=== PATIENT | female | born 1990 | race Caucasian/White ===

== ENCOUNTER 2017-12-13 17:28 | Inpatient (IN) | payer BC ==
--- NOTE | 2017-12-13 17:45 | PDOC ---
Rapid Medical Evaluation Time Seen by Provider: 12/13/17 17:34 Medical Evaluation: Allergies Allergy/AdvReac Type Severity Reaction Status Date / Time cefaclor [From [facility]] Allergy Mild Rash Verified 06/02/13 17:03 12/13/17 17:36 The patient presents with a chief complaint of: " Feels like I cant take a deep breathe" Feels like she has a fever. Plane to [place] 11/29. Currently 29 weeks , Anemic, on iron supplements. I have performed a brief in-person evaluation of this patient. Pertinent physical exam findings: vss, [Tachy. Lungs clear] I have ordered the following: [EKG, cbc , CMP, Iron,, d-dimer, Tyoe and screen ] The patient will proceed to the ED for further evaluation. Discharge Disposition - Diagnosis SOB (shortness of breath) - Referrals - Patient Instructions - Post Discharge Activity
[2017-12-13 18:08] LABS: BASO % 0.2 % (0-2.0); EOS % 1.1 % (0-4.5); HEMATOCRIT 30.3 % (32.4-45.2); HEMOGLOBIN 10.8 GM/dL (10.7-15.3); LYMPH % 20.1 % (8-40); MCH 33.9 pg (25.7-33.7); MCHC 35.7 g/dl (32.0-36.0); MEAN CELL VOLUME 94.9 fl (80-96); MONO % 7.6 % (3.8-10.2); PLATELET COUNT 168 K/MM3 (134-434); RBC 3.19 M/mm3 (3.60-5.2); RDW 13.4 % (11.6-15.6); WHITE BLOOD COUNT 6.3 K/mm3 (4.0-10.0)
[2017-12-13 18:40] LABS: ALBUMIN 2.9 g/dl (3.4-5.0); ALK PHOS 96 U/L (45-117); ANION GAP 10 (8-16); BILIRUBIN,TOTAL 0.7 mg/dL (0.2-1.0); BLOOD UREA NITROGEN 8 mg/dL (7-18); CALCIUM 8.2 mg/dL (8.5-10.1); CHLORIDE 105 mmol/L (98-107); CO2 25 mmol/L (21-32); CREATININE 0.5 mg/dL (0.55-1.02); GLUCOSE,RANDOM 107 mg/dL (74-106); SGOT/AST 14 U/L (15-37); SGPT/ALT 20 U/L (12-78); SODIUM 140 mmol/L (136-145); TOT PROT 6.6 g/dl (6.4-8.2)
--- NOTE | 2017-12-13 19:54 | PDOC ---
History of Present Illness - General Stated Complaint: S.O.B Time Seen by Provider: 12/13/17 17:34 History Source: Patient Exam Limitations: No Limitations - History of Present Illness Initial Comments: CHIEF COMPLAINT: 27 y/o afebrile female, approximately 29 weeks with due date of 02/27/18 c/o difficulty catching her breath today. HISTORY OF PRESENT ILLNESS: The patient admits this has happened multiple times throughout her 2nd trimester but normally goes away on its own pretty quickly. She states today she began having the symptoms of difficulty breathing and it has not gone away. She called Dr. Aragon's office who informed him that she was hardly able to talk because she was so out of breath and admitted she felt like something was sitting on her chest. She does admit to flying back from [place] on 11/29/17. She denies f/c, n/v/d, abd pain, cough , hemoptysis, calf pain. She admits the chest pain has resolved. Vital signs on arrival are notable for pulse of 116. REVIEW OF SYSTEMS: GENERAL/CONSTITUTIONAL: No fever/chills. No weakness. No weight change. HEAD, EYES, EARS, NOSE AND THROAT: No change in vision. No ear pain or discharge. No sore throat. CARDIOVASCULAR: +chest pain and SOB. RESPIRATORY: No cough, wheezing, or hemoptysis. GASTROINTESTINAL: No abd pain, nausea, vomiting, diarrhea. GENITOURINARY: No dysuria, frequency, or change in urination. MUSCULOSKELETAL: No joint or muscle swelling or pain. No neck or back pain. SKIN: No rash or easy bruising. NEUROLOGIC: No headache, vertigo, loss of consciousness, or loss of sensation. PHYSICAL EXAM: GENERAL: The patient is awake, alert, and fully oriented, in no acute distress. The patient is in NAD or obvious discomfort. She can speak in full sentences without difficulty. HEAD: Normal with no signs of trauma. ENT: Pupils equal, round and reactive to light, extraocular movements intact, sclera anicteric, conjunctiva clear. Neck supple. LUNGS: Clear to auscultation bilaterally. Normal excursion. No respiratory distress or use of accessory muscles. CV: Tachycardic with regular rhythm, S1/S2, no MRG. Cap refill < 2 sec. ABDOMEN: Soft, non-distended, non-tender even to deep palpation, no hepatomegaly or splenomegaly, no masses. EXTREMITIES: Normal range of motion, no edema. Negative Master's sign b/l. NEUROLOGICAL: Normal speech, normal gait. CN II-XII grossly intact. PSYCH: Normal mood, normal affect. SKIN: Warm, dry, normal turgor, no rashes or lesions noted. Past History - Past Medical History Allergies/Adverse Reactions: Allergies Allergy/AdvReac Type Severity Reaction Status Date / Time cefaclor [From Ce[facility]] Allergy Mild Rash Verified 06/02/13 17:03 Home Medications: Ambulatory Orders Pnv No.25/Iron Fumarate/FA/Dha [-1 Capsule] 1 each PO DAILY 06/04/13 Ferrous Sulfate 325 mg PO DAILY 12/13/17 Asthma: No Cancer: No Cardiac Disorders: No COPD: No DVT: No Diabetes: No HTN: No Seizures: No Thyroid Disease: No - Reproductive History Is Patient Now?: Yes (#): 3 Para: 2 - Immunization History Immunization Up to Date: Yes - Suicide/Smoking/Psychosocial Hx Smoking History: Never smoked Have you smoked in the past 12 months: No Information on smoking cessation initiated: No Hx Alcohol Use: No Drug/Substance Use Hx: No Substance Use Type: None Hx Substance Use Treatment: No *Physical Exam - Vital Signs Last Vital Signs Temp Pulse Resp BP Pulse Ox 97.8 F 116 H 20 128/78 100 12/13/17 17:35 12/13/17 17:35 12/13/17 17:35 12/13/17 17:35 12/13/17 17:35 Heart Score/ECG Review - ECG Intrepretation Comment:: Twelve-lead EKG was performed and reviewed by Dr. Bridges. There is sinus tachycardia. The axis is normal. The intervals are normal. There are no ST or T wave abnormalities. Impression: Otherwise normal twelve-lead EKG ED Treatment Course - LABORATORY CBC & Chemistry Diagram: 12/13/17 18:00 12/13/17 18:00 - ADDITIONAL ORDERS Additional order review: Laboratory Results 12/13/17 12/13/17 12/13/17 18:00 18:00 18:00 D-Dimer 2287 H Sodium 140 Potassium 4.0 Chloride 105 Carbon Dioxide 25 Anion Gap 10 BUN 8 Creatinine 0.5 L Creat Clearance w eGFR > 60 Random Glucose 107 H Calcium 8.2 L Ferritin 6.319 L Total Bilirubin 0.7 AST 14 L ALT 20 Alkaline Phosphatase 96 Total Protein 6.6 Albumin 2.9 L Blood Type AB POSITIVE Antibody Screen Negative 12/13/17 18:00 RBC 3.19 L MCV 94.9 MCHC 35.7 RDW 13.4 MPV 8.0 Neutrophils % 71.0 Lymphocytes % 20.1 Monocytes % 7.6 Eosinophils % 1.1 Basophils % 0.2 Medical Decision Making - Medical Decision Making A/P: 27 y/o female, 29 week female with SOB and chest pain today with recent airplane travel. Plan is as follows: 1. EKG 2. Labs 3. Doppler LEs. D-Dimer [address] Aragon, her PATENT [place]. He states it is safe to have the patient have a chest CTA to r/o PE. he would like her admitted to him and medically managed by the hospitalist. [phone] Dr. Mahesh Aragon and myself spoke with the patient, explaining all risks and benefits of CTA. the patient agrees to CTA to r/o PE. She will be admitted for observation to Dr. Aragon. Dr. Funk aware and will consult medically. CTA IMPRESSION: No evidence of pulmonary embolism. Patient given results and will be admitted for observation. *DC/Admit/Observation/Transfer Diagnosis at time of Disposition: SOB (shortness of breath), Tachycardia - Discharge Dispostion Condition at time of disposition: Stable Admit: Yes - Referrals - Patient Instructions - Post Discharge Activity
--- NOTE | 2017-12-13 21:04 | PDOC ---
*Physical Exam - Vital Signs Last Vital Signs Temp Pulse Resp BP Pulse Ox 97.8 F 116 H 20 128/78 100 12/13/17 17:35 12/13/17 17:35 12/13/17 17:35 12/13/17 17:35 12/13/17 17:35 ED Treatment Course - LABORATORY CBC & Chemistry Diagram: 12/13/17 18:00 12/13/17 18:00 - ADDITIONAL ORDERS Additional order review: Laboratory Results 12/13/17 12/13/17 12/13/17 18:00 18:00 18:00 D-Dimer 2287 H Sodium 140 Potassium 4.0 Chloride 105 Carbon Dioxide 25 Anion Gap 10 BUN 8 Creatinine 0.5 L Creat Clearance w eGFR > 60 Random Glucose 107 H Calcium 8.2 L Ferritin 6.319 L Total Bilirubin 0.7 AST 14 L ALT 20 Alkaline Phosphatase 96 Total Protein 6.6 Albumin 2.9 L Blood Type AB POSITIVE Antibody Screen Negative 12/13/17 18:00 RBC 3.19 L MCV 94.9 MCHC 35.7 RDW 13.4 MPV 8.0 Neutrophils % 71.0 Lymphocytes % 20.1 Monocytes % 7.6 Eosinophils % 1.1 Basophils % 0.2 Medical Decision Making - Medical Decision Making 12/13/17 21:04 agree with care from KERRI Mallory *DC/Admit/Observation/Transfer Diagnosis at time of Disposition: SOB (shortness of breath), Tachycardia, Suspected pulmonary embolism - Discharge Dispostion Condition at time of disposition: Stable - Referrals Referrals: Kana Aragon MD [Primary Care Provider] - - Patient Instructions - Post Discharge Activity
--- NOTE | 2017-12-13 21:48 | HP ---
Past Medical History - Primary Care Physician PCP:: Kana Aragon - Admission Chief Complaint: 27yo P2 with c/o SOB and prior chest pain that resolved referred to ER for evaluation. History of Present Illness: Pt reports SOB since 12pm that has gotten better. She had some chest pain earlier but that has resolved. She denies cough or hemoptysis, no fever or chills. She still has mild-moderate SOB. The pt took air flight from [place] . History Source: Patient, Medical Record Limitations to Obtaining History: No Limitations - Past Medical History [employer]: No: Alzheimer's, CVA, Dementia, Migraine, Multiple Sclerosis, Peripheral Neuropathy, Parkinson's, Seizure, Syncope, TIA, Vertigo, Other Cardiovascular: No: AFIB, Aneurysm, Aortic Insufficiency, Aortic Stenosis, CAD, CHF, Deep Vein Thrombosis, HTN, Hyperlipdemia, [place], Mitral Insufficiency, Mitral Stenosis, Murmur, Pulmonary Hypertension, Other Pulmonary: No: Asthma, Bronchitis, Cancer, COPD, O2 Dependent, Pneumonia, Previously Intubated, Pulmonary Embolus, Pulmonary Fibrosis, Sleep Apnea, Other Gastrointestinal: No: Ascites, Cancer, Constipation, Crohn's Disease, Diverticulitis, Diverticulosis, Esophageal Varices, Gastritis, GERD, GI Bleed, Hemorrhoids, Hiatal Hernia, Inflamatory Bowel Disease, Irritable Bowel Disease, Pancreatitis, Peptic Ulcer Disease, Ulcerative Colitis, Other Hepatobiliary: No: Cirrhosis, Cholelithiasis, Cholecystitis, Choledocholithiasis , Hepatitis A, Hepatitis B, Hepatitis C, Other Renal/: No: Renal Failure, Renal Inusuff, BPH, Cancer, Hematuria, Hemodialysis , Neurogenic Bladder, Renal Calculi, UTI, Other ...: 3 ...Para: 2 ( x 2) ...Term: 2 ... Weeks Gestation by Dates: ...EDC by Sono: 02/27/18 Heme/Onc: No: Anemia, B12 Deficiency, Bleeding Disorder, Cancer, Current Chemotherapy, Current Radiation Therapy, Hemochromatosis, Hypercoaguable State, Myeloproliferative Synd, Sickle Cell Disease, Sickle Cell Trait, Thrombocytopenia, Other Infectious Disease: No: AIDS, C-Diff, Herpes Zoster, HIV, MRSA, STD's, Tuberculosis, VREF, Other Psych: No: Addictions, Anxiety, Bipolar, Depression, Panic, Psychosis, Schizophrenia, Other Musculoskeletal: No: Bursitis, Chronic low back pain, Hemiparesis, Hemiplegia, Osteoarthritis, Paraplegia, Other Rheumatology: No: Fibromyalgia, Gout, Lupus, Rheumatoid Arthritis, Sarcoidosis, Vasculitis, Other ENT: No: Allergic Rhinitis, Sinusitis, Other Endocrine: No: Bry's Disease, Rubén's Disease, Diabetes Insipidus, Diabetes Mellitus, Hyperparathyroidism, Hyperthyroidism, Hypothyroidism, Osteopenia, SIADH, Other Dermatology: No: Basal Cell, Cellulitis, Eczema, Melanoma, Psoriasis, Squamous Cell, Other - Past Surgical History Past Surgical History: Yes: None Hx Myomectomy: No Hx Transabdominal Cerclage: No - Smoking History Smoking history: Never smoked Have you smoked in the past 12 months: No - Alcohol/Substance Use Hx Alcohol Use: No History of Substance Use: reports: None - Social History ADL: Independent Occupation: teacher History of Recent Travel: Yes ([place]) Home Medications - Allergies Allergies/Adverse Reactions: Allergies Allergy/AdvReac Type Severity Reaction Status Date / Time [facility] Allergy Mild Rash Verified 06/02/13 17:03 - Home Medications Home Medications: Ambulatory Orders Pnv No.25/Iron Fumarate/FA/Dha [-1 Capsule] 1 each PO DAILY 06/04/13 Ferrous Sulfate 325 mg PO DAILY 12/13/17 Family Disease History - Family Disease History Family Disease History: CA: Mother (Hx skin CA) Review of Systems - Review of Systems Constitutional: reports: No Symptoms Eyes: reports: No Symptoms HENT: reports: No Symptoms Neck: reports: No Symptoms Cardiovascular: reports: Chest Pain (resolved), Shortness of Breath Respiratory: reports: SOB Gastrointestinal: reports: No Symptoms Genitourinary: reports: No Symptoms Breasts: reports: No Symptoms Reported Musculoskeletal: reports: No Symptoms Integumentary: reports: No Symptoms Neurological: reports: No Symptoms Endocrine: reports: No Symptoms Hematology/Lymphatic: reports: No Symptoms Psychiatric: reports: No Symptoms Pain Intensity: 0 Physical Exam - Maternity Vital Signs: Vital Signs Temperature 97.8 F 12/13/17 17:35 Pulse Rate 116 H 12/13/17 17:35 Respiratory Rate 20 12/13/17 17:35 Blood Pressure 128/78 12/13/17 17:35 O2 Sat by Pulse Oximetry (%) 100 12/13/17 17:35 Constitutional: Yes: Well Nourished, No Distress, Calm Eyes: Yes: Conjunctiva Clear, EOM Intact HENT: Yes: Atraumatic, Normocephalic Neck: Yes: Supple, Trachea Midline Cardiovascular: Yes: Regular Rate and Rhythm Lungs: Clear to auscultation, Normal air movement - Abdominal Exam/OB Fundal Height: 29 Number of Fetuses: Single Contractions: No - Physical Exam Musculoskeletal: Yes: WNL Extremities: Yes: WNL Edema: No Integumentary: Yes: WNL Deep Tendon Reflex Grade: Normal +2 ...Motor Strength: WNL Psychiatric: Yes: WNL, Alert, Oriented - Labs Lab Results: CBC, BMP 12/13/17 18:00 12/13/17 18:00 Hemorrhage Risk Assessment - Risk Factors Medium Risk Factors: Yes: None High Risk Factors: Yes: None Risk Score: 1 Risk Level: Medium Risk Imaging - Results Other: Report Reviewed (LE Doppler) Assessment/Plan 27yo P2 with at EGA 29w and 1 day presents with acute onset of SOB. The pt is and has a h/o recent air travel but o/w no risk factors. She is being evaluated for a possible PE. At this time, her O2 sat is 100% on room air but labs reflect a high D-dimer. However, D-dimer is of poor diagnostic value in . Her LE Duplex did not show a DVT and the EKG was reported to me as normal. I believe that the clinical index of suspicion for PE is low- moderate probability and further investigation is warranted. The V/Q scan is unavailable until AM and CTPA is a better option for further investigation. I had a long discussion with the patient and her re: risks, benefits, alternatives of CTPA and possible need for anticoagulation. I explained that the risk of radiation to the fetus is very low (and lower from CTPA than V/Q scan), and the risk of contract material is also very low although it crosses the placenta. Plan to await the results of CTPA w/o anticoagulation at this time.
[2017-12-14 03:13] VITALS: BMI 27.3
--- NOTE | 2017-12-14 09:04 | PN ---
Progress Note (SOAP) - Subjective Chief Complaint: Pt is feeling well. SOB resolved, no chest pain, no dyspnea. Results reviewed wit pt. History of Present Illness: Admitted with acute SOB. Symptoms resolved - Objective Vital Signs: Vital Signs Temperature 98.2 F 12/14/17 03:00 Pulse Rate 82 12/14/17 03:00 Respiratory Rate 20 12/14/17 03:00 Blood Pressure 117/68 12/14/17 03:00 O2 Sat by Pulse Oximetry (%) 98 12/14/17 01:50 Constitutional: Yes: Well Nourished, No Distress, Calm Eyes: Yes: WNL, Conjunctiva Clear, EOM Intact HENT: Yes: WNL, Atraumatic, Normocephalic Neck: Yes: WNL, Supple, Trachea Midline Cardiovascular: Yes: WNL, Regular Rate and Rhythm Respiratory: Yes: WNL, Regular, CTA Bilaterally Gastrointestinal: Yes: WNL, Normal Bowel Sounds, Soft, Other (Gravid, NT) ...Rectal Exam: Yes: Deferred Genitourinary: Yes: WNL Musculoskeletal: Yes: WNL Extremities: Yes: WNL Edema: No Integumentary: Yes: WNL Neurological: Yes: WNL, Alert, Oriented ...Motor Strength: Yes: WNL Psychiatric: Yes: WNL, Alert, Oriented Additional Findings/Remarks: NST reactive with no decels, no ctx Labs Lab Results: CBC, BMP 12/13/17 18:00 12/13/17 18:00 Imaging - Results Cat Scan: Report Reviewed EKG: Report Reviewed Assessment/Plan 27yo P2 with at EGA 29w and 2 day admitted with acute onset of SOB. The pt reports resolution of sx's. CTPA is low probability for PE, normal heart and lungs. other evaluation WNL as well. At this point, plan to d/c home and f/ u as outpatient. Pt agreed.
--- NOTE | 2017-12-14 09:09 | DS ---
Physical Exam-[employer]IATE Vital Signs: Vital Signs Temperature 98.2 F 12/14/17 03:00 Pulse Rate 82 12/14/17 03:00 Respiratory Rate 20 12/14/17 03:00 Blood Pressure 117/68 12/14/17 03:00 O2 Sat by Pulse Oximetry (%) 98 12/14/17 01:50 Constitutional: Yes: Well Nourished, No Distress, Calm Eyes: Yes: WNL, Conjunctiva Clear, EOM Intact HENT: Yes: WNL, Atraumatic, Normocephalic Neck: Yes: WNL, Supple, Trachea Midline Cardiovascular: Yes: WNL, Regular Rate and Rhythm Respiratory: Yes: WNL, Regular, CTA Bilaterally Gastrointestinal: Yes: WNL, Normal Bowel Sounds, Soft, Other (gravid) ...Rectal Exam: Yes: Deferred Renal/: Yes: WNL Internal Exam Deferred: Yes Breast(s): Yes: WNL, Other (axilary accessory breast tissue) Musculoskeletal: Yes: WNL Extremities: Yes: WNL Edema: No Integumentary: Yes: WNL Neurological: Yes: WNL, Alert, Oriented ...Motor Strength: WNL Psychiatric: Yes: WNL, Alert, Oriented Labs: CBC, BMP 12/13/17 18:00 12/13/17 18:00 Delivery, Single - [place] Feeding Plan Initial Plan: Exclusive throughout hospitalization Discharge Summary Reason For Visit: SHORTNESS OF BREATH, SUSPECT PULMONARY EMBOLISM, Current Active Problems SOB (shortness of breath) (Acute) Tachycardia (Acute) Other Procedures: NST Hospital Course: Sx's resolved Condition: Improved - Instructions Diet, Activity, Other Instructions: Physical activity Resume light everyday activity as tolerated no heavy lifting or exercise until seen by your surgeon. No sexual activity as instructed. Diet There are no dietary restrictions. Eat healthy, high-fiber foods. Drink 6 to 8 glasses of liquid each day. This will assist in keeping your bowels are regular. Call MD for any of the following: Shortness of Breath Chest pain Severe abdominal pain not relieved by medication Fever of 101 or higher Vaginal bleeding Inability to urinate Keep your appointment for 12/15/2017 Referrals: Kana Aragon MD [Primary Care Provider] - - Home Medications Comprehensive Discharge Medication List: Ambulatory Orders Pnv No.25/Iron Fumarate/FA/Dha [-1 Capsule] 1 each PO DAILY 06/04/13 Ferrous Sulfate 325 mg PO DAILY 12/13/17
[2017-12-14 09:37] VITALS: BP 113/69; PULSE 91; TEMP 98.4
[2017-12-14] MEDS ORDERED: [UNRECOGNIZED DRUG - REMARK] PO SCH (10:00)
--- NOTE | 2017-12-14 10:51 | EKG ---
Test Reason : Blood Pressure : / mmHG Vent. Rate : 104 BPM Atrial Rate : 104 BPM P-R Int : 138 ms QRS Dur : 084 ms QT Int : 320 ms P-R-T Axes : 022 024 013 degrees QTc Int : 420 ms SINUS TACHYCARDIA OTHERWISE NORMAL ECG NO PREVIOUS ECGS AVAILABLE Confirmed by DESHAWN STOVER MD ([id number]) on 12/14/2017 10:50:50 AM Referred By: Confirmed By:DESHAWN STOVER MD
[2017-12-16 00:07] LABS: SERUM IRON SATURATION 54 % (15-55); TOTAL IRON BINDING CAPACITY 476 ug/dL (250-450); UIBC 221 ug/dL (131-425)
== END 2017-12-14 10:15 | disposition home or self-care (01) | DRG 782 ==
LOC: JER 17:28 → JERBED 20:59 → OBSVTOIN 20:59 → J3W 12-14 03:00
PROVIDERS: ADMIT Obstetrics & Gynecology; ATTEND Obstetrics & Gynecology
DX: O75.89 Other specified complications of labor and delivery (principal); R06.02 Shortness of breath; R00.0 Tachycardia, unspecified; Z3A.29 29 weeks gestation of pregnancy
CPT/HCPCS: 36415; 71275-TC; 80053; 82728; 83540; 83550; 85025; 85379; 86850; 86900; 86901; 93005; 93010; 93970-TC; 99284-25